=== PATIENT | female | born 1965 | race Caucasian/White ===

== ENCOUNTER 2016-07-27 04:19 | Emergency (ER) | payer OTHER ==
[2016-07-27 04:42] LABS: PH,URINE 6.5 (5.0-8.0); SPECIFIC GRAVITY 1.015 (1.001-1.030); URINE BILIRUBIN NEGATIVE (NEGATIVE); URINE BLOOD NEGATIVE (NEGATIVE); URINE GLUCOSE (UA) NEGATIVE (NEGATIVE); URINE LEUKOCYTE ESTERASE NEGATIVE (NEGATIVE); URINE NITRITE NEGATIVE (NEGATIVE); URINE PROTEIN NEGATIVE (NEGATIVE); URINE UROBILINOGEN NORMAL (0-1 mg/dl)
[2016-07-27 04:43] LABS: URINE APPEARANCE CLEAR; URINE COLOR YELLOW
[2016-07-27 04:44] LABS: HCG,QUALITATIVE URINE NEGATIVE
[2016-07-28 14:51] LABS: CHLAMYDIA BD Negative (Negative); N.GONORRHOEAE BD Negative (Negative); SOURCE Urine (())
== END 2016-07-27 05:57 | disposition home or self-care (01) ==
LOC: ED 04:19
DX: R35.0 Frequency of micturition (principal); R10.2 Pelvic and perineal pain